=== PATIENT | female | born 1960 | race Caucasian/White ===

== ENCOUNTER 2017-06-13 11:03 | Day surgery (SDC) | payer BC ==
[~2017-06-13 11:03] MED LIST: Lidocaine 1% 50 ML MDV ONE
[2017-06-13] MEDS ORDERED: Lactated Ringers 1,000 ML IV SCH (11:45)
[2017-06-13] MEDS ORDERED: Midazolam 1 MG/ML 2 ML SDV ONE (11:46)
[2017-06-13] MEDS ORDERED: Propofol 200 MG/20 ML SDV ONE ×2 (11:46→12:20)
[2017-06-13] MEDS ORDERED: fentaNYL 100 MCG/2 ML SDV ONE (11:46)
[2017-06-13] MEDS ORDERED: Lidocaine 1% 50 ML MDV INJECT ONE (12:13)
[2017-06-13] MEDS ORDERED: fentaNYL 100 MCG/2 ML SDV IVPUSH ONE (12:50)
--- NOTE | 2017-06-13 12:52 | PCM.PRNOTE ---
- Free Text/Narrative Note: PREOPERATIVE DIAGNOSES: 1. Enlarged endometrial cavity. 2. endometrial polyp POSTOPERATIVE DIAGNOSES: 1. Enlarged fibroid uterus. 2. fundal fibroid protruding through endometrial cavity PROCEDURE PERFORMED: 1. Dilatation and curettage. 2. Hysteroscopy. GROSS FINDINGS: Uterus was anteverted, enlarged, irregular and firm. The cervix is menopausal without lesions. Adnexal examination was negative for masses. PROCEDURE: The patient was taken to the operating room where she was properly prepped and draped in sterile manner under general anesthesia. After bimanual examination, the cervix was exposed with a weighted vaginal speculum and the anterior lip of the cervix grasped with a vulsellum tenaculum. The uterus was sounded to a depth of 7 cm. The endocervical canal was then progressively dilated with Hanks and Hegar dilators to a #10 Hegar. The hysteroscope was then introduced into the uterine cavity using sterile saline solution as a distending media and with attached video camera. The endometrial cavity was distended with fluids and the cavity visualized. Fundal irregular area of fibroid degeneration were seen at the uterine fundus. The coronal areas were visualized bilaterally with corresponding tubal ostia. A scant amount of proliferative appearing endometrium was noted. There were no direct intraluminal lesions seen. The patient tolerated the procedure well. Several pictures were taken of the endometrial cavity and the hysteroscope removed from the cavity. A large sharp curette was then used to obtain a moderate amount of tissue, which was the sent to pathologist for analysis. The instrument was removed from the vaginal vault. The patient was sent to recovery area in satisfactory postoperative condition.
== END 2017-06-13 14:30 | disposition home or self-care (01) ==
LOC: JP.SDS 11:03
PROVIDERS: ATTEND Obstetrics & Gynecology
DX: N84.0 Polyp of corpus uteri (principal); M48.061 Spinal stenosis, lumbar region without neurogenic claudication; M48.02 Spinal stenosis, cervical region; J30.9 Allergic rhinitis, unspecified; G89.4 Chronic pain syndrome; K21.9 Gastro-esophageal reflux disease without esophagitis; Z96.651 Presence of right artificial knee joint; Z87.891 Personal history of nicotine dependence; Z98.890 Other specified postprocedural states; Z79.899 Other long term (current) drug therapy
CPT/HCPCS: 36415; 58558; 86850; 86900; 86901; 88305; J2250; J2704; J3010; J7120